=== PATIENT | female | born 1960 | race Caucasian/White ===

== ENCOUNTER → 2017-10-14 | Outpatient (CLI) | payer OTHER | LOC: RAD 11:30 → MAMMO 11:30 | DX: Z12.31 Encounter for screening mammogram for malignant neoplasm of breast (principal) ==

== ENCOUNTER 2017-11-13 11:00 | Outpatient (RCR) | payer OTHER | END 2017-11-13 11:30 | disposition home or self-care (01) | LOC: PT 11:00 | DX: M79.671 Pain in right foot (principal) ==

== ENCOUNTER → 2019-05-26 | Outpatient (CLI) | payer BC | LOC: MAMMO 15:15 | DX: Z00.00 Encounter for general adult medical examination without abnormal findings (principal); Z12.31 Encounter for screening mammogram for malignant neoplasm of breast; Z13.820 Encounter for screening for osteoporosis ==

== ENCOUNTER → 2019-08-31 | Outpatient (CLI) | payer BC ==
[2019-08-31 08:15] LABS: EOS # 0.2 (0.04-0.40); EOS % 3.1 % (1.0-5.0); HEMATOCRIT 42.2 % (37.0-47.0); HEMOGLOBIN 14.8 g/dL (12.5-16.0); LYMPH# 1.5 (1.50-4.00); MEAN CELL VOLUME 99 fl (78-100); MEAN CORPUSCULAR HEMOGLOBIN 35 pg (27-31); MEAN CORPUSCULAR HGB CONC 35 g/dL (33-37); MEAN PLATELET VOLUME 11.1 fl (7.4-10.4); MONO # 0.7 (0.20-0.80); NEU # 3.4 (1.40-6.50); PLATELET COUNT 167 K/mm3 (130-400); RED BLOOD COUNT 4.26 M/mm3 (4.10-5.30); RED CELL DISTRIBUTION WIDTH 13.2 % (11.5-14.5); WHITE BLOOD COUNT 5.8 K/mm3 (4.8-10.8)
[2019-08-31 08:25] LABS: POTASSIUM 3.9 mmol/L (3.5-5.1)
[2019-08-31 08:27] LABS: CALCIUM 9.5 mg/dL (8.3-10.5)
[2019-08-31 08:28] LABS: TOTAL PROTEIN 6.7 g/dL (6.2-8.1)
[2019-08-31 08:30] LABS: TOTAL BILIRUBIN 0.5 mg/dL (0.2-1.2)
== END ==
LOC: LAB 08:03
PROVIDERS: Family Medicine
DX: Z00.00 Encounter for general adult medical examination without abnormal findings (principal); Z13.220 Encounter for screening for lipoid disorders; K90.9 Intestinal malabsorption, unspecified

== ENCOUNTER → 2020-06-26 | Outpatient (CLI) | payer BC | LOC: LAB 08:09 | DX: J02.9 Acute pharyngitis, unspecified (principal); J34.89 Other specified disorders of nose and nasal sinuses; R68.89 Other general symptoms and signs; R63.0 Anorexia; R19.7 Diarrhea, unspecified; Z20.828 Contact with and (suspected) exposure to other viral communicable diseases ==

== ENCOUNTER → 2020-08-16 | Outpatient (CLI) | payer BC | LOC: MAMMO 11:25 | DX: Z12.31 Encounter for screening mammogram for malignant neoplasm of breast (principal) ==

== ENCOUNTER → 2020-08-30 | Outpatient (CLI) | payer BC ==
[2020-08-30 09:39] LABS: EOS # 0.1 (0.04-0.40); EOS % 2.3 % (1.0-5.0); HEMATOCRIT 45.5 % (37.0-47.0); LYMPH# 1.5 (1.50-4.00); MEAN CELL VOLUME 102 fl (78-100); MEAN CORPUSCULAR HEMOGLOBIN 34 pg (27-31); MEAN CORPUSCULAR HGB CONC 33 g/dL (33-37); MEAN PLATELET VOLUME 11.6 fl (7.4-10.4); MONO # 0.6 (0.20-0.80); NEU # 3.9 (1.40-6.50); PLATELET COUNT 188 K/mm3 (130-400); RED BLOOD COUNT 4.47 M/mm3 (4.10-5.30); RED CELL DISTRIBUTION WIDTH 13.9 % (11.5-14.5); WHITE BLOOD COUNT 6.2 K/mm3 (4.8-10.8)
[2020-08-30 09:42] LABS: POTASSIUM 4.1 mmol/L (3.5-5.1)
[2020-08-30 09:43] LABS: ALBUMIN 4.2 g/dL (3.4-4.8)
[2020-08-30 09:44] LABS: CALCIUM 9.1 mg/dL (8.3-10.5)
[2020-08-30 09:47] LABS: TOTAL BILIRUBIN 0.5 mg/dL (0.2-1.2)
== END ==
LOC: LAB 09:01
PROVIDERS: Family Medicine
DX: Z00.00 Encounter for general adult medical examination without abnormal findings (principal); E78.5 Hyperlipidemia, unspecified

== ENCOUNTER → 2020-09-21 | Outpatient (CLI) | payer BC | LOC: LAB 08:46 | DX: J02.9 Acute pharyngitis, unspecified (principal); Z20.828 Contact with and (suspected) exposure to other viral communicable diseases ==

== ENCOUNTER → 2021-07-20 | Outpatient (CLI) | payer BC | LOC: LAB 10:08 | DX: N39.0 Urinary tract infection, site not specified (principal) ==

== ENCOUNTER → 2021-07-30 | Outpatient (CLI) | payer BC | LOC: RAD 12:36 | DX: M16.12 Unilateral primary osteoarthritis, left hip (principal) ==

== ENCOUNTER → 2021-09-03 | Outpatient (CLI) | payer BC ==
[2021-09-03 10:15] LABS: BASO # 0.04 K/mm3 (0.02-0.10); EOS # 0.12 K/mm3 (0.04-0.40); EOS % 1.4 % (1.0-5.0); HEMATOCRIT 45.9 % (37.0-47.0); HEMOGLOBIN 15.1 g/dL (12.5-16.0); LYMPH# 1.53 K/mm3 (1.50-4.00); MEAN CELL VOLUME 103 fl (78-100); MEAN CORPUSCULAR HEMOGLOBIN 34 pg (27-31); MEAN CORPUSCULAR HGB CONC 33 g/dL (33-37); MEAN PLATELET VOLUME 10.1 fl (7.4-10.4); MONO # 0.57 K/mm3 (0.20-0.80); NEU # 6.41 K/mm3 (1.40-6.50); PLATELET COUNT 247 K/mm3 (130-400); RED BLOOD COUNT 4.47 M/mm3 (4.10-5.30); RED CELL DISTRIBUTION WIDTH 13.9 % (11.5-14.5); WHITE BLOOD COUNT 8.7 K/mm3 (4.8-10.8)
[2021-09-03 10:22] LABS: ALBUMIN 4.2 g/dL (3.4-4.8); POTASSIUM 5.1 mmol/L (3.5-5.1)
[2021-09-03 10:25] LABS: TOTAL PROTEIN 7.7 g/dL (6.2-8.1)
[2021-09-03 10:27] LABS: TOTAL BILIRUBIN 0.4 mg/dL (0.2-1.2)
== END ==
LOC: LAB 09:52
PROVIDERS: Family Medicine
DX: Z00.00 Encounter for general adult medical examination without abnormal findings (principal); E78.5 Hyperlipidemia, unspecified

== ENCOUNTER → 2021-09-11 | Outpatient (CLI) | payer BC | LOC: RAD 08:29 | DX: Z12.31 Encounter for screening mammogram for malignant neoplasm of breast (principal); M25.452 Effusion, left hip ==

== ENCOUNTER → 2021-11-07 | Outpatient (CLI) | payer BC | LOC: AMSURD 08:25 | DX: Z01.89 Encounter for other specified special examinations (principal) ==

== ENCOUNTER → 2021-11-14 | Outpatient (CLI) | payer BC ==
[2021-11-14 09:40] LABS: BASO # 0.03 K/mm3 (0.02-0.10); EOS # 0.19 K/mm3 (0.04-0.40); EOS % 2.1 % (1.0-5.0); HEMATOCRIT 44.7 % (37.0-47.0); LYMPH# 1.27 K/mm3 (1.50-4.00); MEAN CELL VOLUME 102 fl (78-100); MEAN CORPUSCULAR HEMOGLOBIN 34 pg (27-31); MEAN CORPUSCULAR HGB CONC 34 g/dL (33-37); MEAN PLATELET VOLUME 10.6 fl (7.4-10.4); MONO # 0.64 K/mm3 (0.20-0.80); NEU # 6.99 K/mm3 (1.40-6.50); PLATELET COUNT 219 K/mm3 (130-400); RED BLOOD COUNT 4.39 M/mm3 (4.10-5.30); RED CELL DISTRIBUTION WIDTH 13.4 % (11.5-14.5); WHITE BLOOD COUNT 9.1 K/mm3 (4.8-10.8)
[2021-11-14 09:48] LABS: ALBUMIN 4.1 g/dL (3.4-4.8); POTASSIUM 4.4 mmol/L (3.5-5.1)
[2021-11-14 09:49] LABS: CALCIUM 9.4 mg/dL (8.3-10.5)
[2021-11-14 09:52] LABS: TOTAL BILIRUBIN 0.4 mg/dL (0.2-1.2)
[2021-11-14 10:12] LABS: PROTHROMBIN TIME 9.3 SECONDS (9.0-12.0)
[2021-11-14 11:38] LABS: PH-URINE 5.5 (5.0 - 8.0); URINE APPEARANCE CLEAR; URINE BILIRUBIN NEGATIVE (NEGATIVE); URINE BLOOD NEGATIVE (NEGATIVE); URINE COLOR YELLOW; URINE GLUCOSE NEGATIVE (NEGATIVE); URINE KETONE NEGATIVE (NEGATIVE); URINE LEUKOCYTE ESTERASE NEGATIVE (NEGATIVE); URINE NITRATE NEGATIVE (NEGATIVE); URINE PROTEIN(semi-quant) NEGATIVE (NEGATIVE); URINE UROBILINOGEN NORMAL (NORMAL); URINE WBC 0-1 /hpf (0-3)
== END ==
LOC: LAB 09:06
PROVIDERS: Family Medicine
DX: Z01.89 Encounter for other specified special examinations (principal); Z12.2 Encounter for screening for malignant neoplasm of respiratory organs

== ENCOUNTER 2021-11-30 10:55 | Outpatient (RCR) | payer BC | END 2021-12-03 | LOC: PT | DX: Z96.642 Presence of left artificial hip joint (principal) ==

== ENCOUNTER 2021-12-05 12:57 | Outpatient (RCR) | payer BC | END 2022-01-03 | disposition still patient (30) | LOC: PT | DX: M25.552 Pain in left hip (principal); Z96.642 Presence of left artificial hip joint ==

== ENCOUNTER 2022-01-09 15:34 | Outpatient (RCR) | payer BC | END 2022-01-25 17:00 | disposition home or self-care (01) | LOC: PT 15:34 | DX: M25.552 Pain in left hip (principal); Z96.642 Presence of left artificial hip joint ==

== ENCOUNTER 2022-10-09 10:01 | Outpatient (RCR) | payer BC | END 2022-11-05 | LOC: PT | DX: G95.19 Other vascular myelopathies (principal) ==

== ENCOUNTER 2022-10-30 09:53 | Outpatient (RCR) | payer BC | END 2022-11-05 | LOC: OT | DX: M48.062 Spinal stenosis, lumbar region with neurogenic claudication (principal) ==

== ENCOUNTER → 2022-12-03 | Outpatient (CLI) | payer BC | LOC: LAB 10:40 | DX: L02.214 Cutaneous abscess of groin (principal) ==

== ENCOUNTER → 2024-03-02 | Outpatient (CLI) | payer MEDICARE, OTHER ==
[2024-04-21 15:28] LABS: CALCIUM 9.3 mg/dL (8.3-10.5); TOTAL BILIRUBIN 0.2 mg/dL (0.2-1.2); TOTAL PROTEIN 6.6 g/dL (6.2-8.1)
[2024-04-21 15:29] LABS: BASO # 0.04 K/mm3 (0.02-0.10); EOS # 0.22 K/mm3 (0.04-0.40); EOS % 3.6 % (1.0-5.0); HEMATOCRIT 45.5 % (37.0-47.0); HEMOGLOBIN 14.8 g/dL (12.5-16.0); LYMPH# 1.69 K/mm3 (1.50-4.00); MEAN CELL VOLUME 101 fl (78-100); MEAN CORPUSCULAR HEMOGLOBIN 33 pg (27-31); MEAN CORPUSCULAR HGB CONC 33 g/dL (33-37); MEAN PLATELET VOLUME 10.4 fl (7.4-10.4); MONO # 0.65 K/mm3 (0.20-0.80); NEU # 3.51 K/mm3 (1.40-6.50); PLATELET COUNT 208 K/mm3 (130-400); RED BLOOD COUNT 4.52 M/mm3 (4.10-5.30); RED CELL DISTRIBUTION WIDTH 13.1 % (11.5-14.5); WHITE BLOOD COUNT 6.1 K/mm3 (4.8-10.8)
== END ==
LOC: LAB 16:05
PROVIDERS: Family Medicine
DX: E78.5 Hyperlipidemia, unspecified (principal); E55.9 Vitamin D deficiency, unspecified; I10 Essential (primary) hypertension